=== PATIENT | male | born 1970 | race Caucasian/White ===

== ENCOUNTER 2019-05-18 17:29 | Emergency (ER) | payer BC, OTHER ==
[~2019-05-18] VITALS: Ht 183 cm; Wt 95.0 kg
--- OUTSIDE RECORDS SUMMARY | 2019-05-18 17:38 | XMS REPORT | Continuity of Care Document ---
Author Organization Unknown Address Unknown Phone Unavailable Allergies There is no data. Medications There is no data. Problems There is no data. Procedures There is no data. Results There is no data. Encounters ACCT No. Visit Date/Time Discharge Status Pt. Type Provider Facility Loc./Unit Complaint [id number] 10/18/2018 07:10:00 10/18/2018 23:59: 59 CLS Outpatient [facility]
[2019-05-18] MEDS ORDERED: ceFAZolin INJECTION 2,000 MG in WATER (STERILE) FOR INJECTION 10 ML IV STA (17:40)
[2019-05-18] MEDS ORDERED: NS IV 1000 ML 1,000 ML IV STA (17:40)
[2019-05-18] MEDS ORDERED: PARO20TA5 (17:44)
[2019-05-18] MEDS ORDERED: TETANUS,DIPTH,PERTUSS P/F (BOOSTRIX) 0.5 ML VIAL IM ONE (17:45)
--- NOTE | 2019-05-18 17:46 | ED Fall/Injury ---
General Stated Complaint: ARM INJ Source: patient, RN notes reviewed Exam Limitations: no limitations History of Present Illness Date Seen by Provider: May 18, 2019 Time Seen by Provider: 17:30 Initial Comments This patient is a 42 yo male presents to the emergency room Traumatic injury to the right forearm. Patient states he and the family was trying to move a gun safe in the home coming down the stairs. It fell over and basically partially degloved the forearm on the right. Significant damage the flexor radialis muscles and the ulnar side of the right forearm. Muscle exam. Patient does have somewhat diminished passenger attendant on the right mildly diminished capillary refill but appears to have good circulation otherwise. We'll do medical evaluation this patient we have discussed options patient will be transferred [facility] for trauma. We'll contact him shortly. Occurred: just prior to arrival Injuries/Pain Location: upper extremity Loss of Consciousness: no loss of consciousness Associated Symptoms (Fall): Denies Symptoms Allergies and Home Medications Allergies Coded Allergies: No Known Drug Allergies (Unverified , 05/18/19) Patient Home Medication List Home Medication List Reviewed: Yes Review of Systems Review of Systems Constitutional: No no symptoms reported; see HPI; No chills, No diaphoresis, No dizziness, No fever, No malaise, No weakness, No weight gain, No weight loss, No other Eyes: Denies No Symptoms Reported, Denies See HPI, Denies Blindness, Denies Blurred Vision, Denies Drainage, Denies Decreased Acuity, Denies Foreign Body Sensation, Denies Inflammation, Denies Pain, Denies Photophobia, Denies Previous Injury, Denies Shadows, Denies Tunnel Vision, Denies Vision Changes, Denies Contact Lenses, Denies Glasses, Denies Other Ears, Nose, Mouth, Throat: denies no symptoms reported, denies see HPI, denies ear pain, denies ear discharge, denies nose pain, denies nose discharge, denies epistaxis, denies mouth pain, denies mouth swelling, denies loose teeth, denies throat pain, denies throat swelling Respiratory: No no symptoms reported, No see HPI, No cough, No dyspnea on exertion, No hemoptysis, No orthopnea, No phlegm, No short of breath, No stridor, No wheezing, No other Cardiovascular: No no symptoms reported, No see HPI, No chest pain, No edema, No Hx of Intervention, No palpitations, No syncope, No vascular heart diseas, No other Gastrointestinal: No RUQ, No LUQ, No RLQ, No LLQ, No no symptoms reported, No see HPI, No abdominal pain, No constipation, No diarrhea, No dysphagia, No hematemesis, No heartburn, No jaundice, No loss of appetite, No melena, No nausea, No vomiting, No other Musculoskeletal: see HPI, muscle pain, muscle weakness Physical Exam Vital Signs Vital Signs - First Documented Capillary Refill : Height, Weight, BMI Height: '" Weight: lbs. oz. kg; BMI Method: General Appearance: WD/WN, no apparent distress HEENT: PERRL/EOMI, normal ENT inspection, TMs normal, pharynx normal Neck: non-tender, full range of motion, supple, normal inspection Cardiovascular: normal peripheral pulses, regular rate, rhythm, no edema, no gallop, no JVD, no murmur Respiratory: chest non-tender, lungs clear, normal breath sounds, no respiratory distress, no accessory muscle use Extremities: other (significant traumatic injury to the right forearm postoperatively around the Flexor mucle group on Ulnar side. Patient appears to have suffered some degloved meant in the area tendons do appear to be intact. That has diminished flexion of that muscle and weakness. We'll need further evaluation by orthopedics.) Progress/Results/Core Measures Results/Orders Lab Results Laboratory Tests Test 05/18/19 17:40 Range/Units White Blood Count 9.3 4.3-11.0 10^3/uL Red Blood Count 4.60 4.35-5.85 10^6/uL Hemoglobin 14.3 13.3-17.7 G/DL Hematocrit 42 40-54 % Mean Corpuscular Volume 91 80-99 FL Mean Corpuscular Hemoglobin 31 25-34 PG Mean Corpuscular Hemoglobin Concent 34 32-36 G/DL Red Cell Distribution Width 12.6 10.0-14.5 % Platelet Count 267 130-400 10^3/uL Mean Platelet Volume 11.2 H 7.4-10.4 FL Neutrophils (%) (Auto) 41 L 42-75 % Lymphocytes (%) (Auto) 42 12-44 % Monocytes (%) (Auto) 9 0-12 % Eosinophils (%) (Auto) 7 0-10 % Basophils (%) (Auto) 1 0-10 % Neutrophils # (Auto) 3.8 1.8-7.8 X 10^3 Lymphocytes # (Auto) 3.9 1.0-4.0 X 10^3 Monocytes # (Auto) 0.8 0.0-1.0 X 10^3 Eosinophils # (Auto) 0.7 H 0.0-0.3 10^3/uL Basophils # (Auto) 0.1 0.0-0.1 10^3/uL Sodium Level 143 135-145 MMOL/L Potassium Level 3.6 3.6-5.0 MMOL/L Chloride Level 106 98-107 MMOL/L Carbon Dioxide Level 23 21-32 MMOL/L Anion Gap 14 5-14 MMOL/L Blood Urea Nitrogen 19 H 7-18 MG/DL Creatinine 1.38 H 0.60-1.30 MG/DL Estimat Glomerular Filtration Rate 55 BUN/Creatinine Ratio 14 Glucose Level 122 H 70-105 MG/DL Calcium Level 9.1 8.5-10.1 MG/DL Corrected Calcium 8.5-10.1 MG/DL Total Bilirubin 0.5 0.1-1.0 MG/DL Aspartate Amino Transf (AST/SGOT) 25 5-34 U/L Alanine Aminotransferase (ALT/SGPT) 25 0-55 U/L Alkaline Phosphatase 56 40-136 U/L Total Protein 7.0 6.4-8.2 GM/DL Albumin 4.7 H 3.2-4.5 GM/DL My Orders Orders - ALANA MCKEON MD Comprehensive Metabolic Panel (05/18/19 17:37) Ed Iv/Invasive Line Start (05/18/19 17:37) Cbc With Automated Diff (05/18/19 17:37) Forearm 2 View Right (05/18/19 17:37) Dipht,Pertuss(Acell),Tet Adult (Boostrix (05/18/19 17:45) Ns Iv 1000 Ml (Sodium Chloride 0.9%) (05/18/19 17:40) Cefazolin Injection (Ancef Injection) (05/18/19 17:40) Ondansetron Injection (Zofran Injectio (05/18/19 18:01) Morphine Injection (Morphine Injection (05/18/19 18:05) Medications Given in ED Current Medications Medications Dose Ordered Sig/Jinny Route Start Time Stop Time Status Last Admin Dose Admin Diphtheria/ Tetanus/Acell Pertussis 0.5 ml ONCE ONCE IM 05/18/19 17:45 05/18/19 17:46 DC 05/18/19 17:57 0.5 ML Morphine Sulfate 10 mg STK-MED ONCE .ROUTE 05/18/19 18:05 05/18/19 18:12 DC 05/18/19 18:20 10 MG Ondansetron HCl 4 mg STK-MED ONCE .ROUTE 05/18/19 18:01 05/18/19 18:08 DC 05/18/19 18:12 4 MG Vital Signs/I&O 05/18/19 05/18/19 05/18/19 17:45 17:45 19:27 Temp 38.4 34.5 Pulse 68 68 76 Resp 14 18 14 B/P (MAP) 122/80 (94) 149/86 (107) 120/73 Pulse Ox 100 94 98 O2 Delivery Room Air Room Air Progress Progress Note : Time: 18:22 Progress Note I discussed at length with trauma surgery at [facility]. Patient be transferred to [facility] for surgical repair was Repliform patient excepting physician is Dr. Juarez Departure Impression Primary Impression: Traumatic injury Additional Impression: Laceration of right arm with complication Disposition: XFER SHT-TRM HOSP Condition: Stable Transfer Transfer Reason: Exceeds level of care Time Spoke to Accepting Phy: 18:27 Transfer Progress Notes I discussed at length with trauma surgery at [facility]. Patient be transferred to [facility] for surgical repair was Repliform patient excepting physician is Dr. Juarez Transfer Time: 18:27 Transfer Facility: [facility] Method of Transfer: EMS Departure-Patient Inst. Referrals: JULIANNA CHANEY DO (PCP/Family) Primary Care Physician ALANA MCKEON MD May 18, 2019 17:46
[2019-05-18 18:00] LABS: HEMATOCRIT 42 % (40-54); HEMOGLOBIN 14.3 G/DL (13.3-17.7); MEAN CORPUSCULAR HEMOGLOBIN 31 PG (25-34); MEAN CORPUSCULAR HGB CONC 34 G/DL (32-36); MEAN CORPUSCULAR VOLUME 91 FL (80-99); RED CELL DISTRIBUTION WIDTH 12.6 % (10.0-14.5); WHITE BLOOD COUNT 9.3 10^3/uL (4.3-11.0)
[2019-05-18 18:01] LABS: BASOPHILS # (AUTO) 0.1 10^3/uL (0.0-0.1); BASOPHILS % (AUTO) 1 % (0-10); EOSINOPHILS # (AUTO) 0.7 10^3/uL (0.0-0.3); EOSINOPHILS % (AUTO) 7 % (0-10); LYMPHOCYTES # (AUTO) 3.9 X 10^3 (1.0-4.0); LYMPHOCYTES % (AUTO) 42 % (12-44); MEAN PLATELET VOLUME 11.2 FL (7.4-10.4); MONOCYTES # (AUTO) 0.8 X 10^3 (0.0-1.0); MONOCYTES % (AUTO) 9 % (0-12); NEUTROPHILS # (AUTO) 3.8 X 10^3 (1.8-7.8); NEUTROPHILS % (AUTO) 41 % (42-75); PLATELET COUNT 267 10^3/uL (130-400)
[2019-05-18] MEDS ORDERED: ONDANSETRON 4 MG/2 ML (SDV) Z0FRAN ONE (18:01)
[2019-05-18] MEDS ORDERED: morphine INJ 10 MG/ML 1ML (SYR OR VIAL) ONE (18:05)
--- NOTE | 2019-05-18 18:21 | Diagnostic Imaging Report ---
INDICATION: Trauma. EXAMINATION: Two views of the right forearm. FINDINGS: There is laceration of the soft tissues along the mid forearm on the left along the ulnar side. Ulna and radius appear intact. Elbow and wrist show good alignment. No joint effusion. IMPRESSION: 1. No bony abnormality. 2. Large open laceration of the right forearm soft tissues. Dictated by: Dictated on workstation # [id number]
[2019-05-18 18:22] LABS: CHLORIDE 106 MMOL/L (98-107); POTASSIUM 3.6 MMOL/L (3.6-5.0); SODIUM 143 MMOL/L (135-145)
[2019-05-18 18:23] LABS: ALANINE AMINOTRANSFERASE 25 U/L (0-55); ALBUMIN 4.7 GM/DL (3.2-4.5); ALKALINE PHOSPHATASE 56 U/L (40-136); BILIRUBIN,TOTAL 0.5 MG/DL (0.1-1.0); BUN/CREATININE RATIO 14; CALCIUM 9.1 MG/DL (8.5-10.1); CARBON DIOXIDE 23 MMOL/L (21-32); CREATININE SERUM 1.38 MG/DL (0.60-1.30); GFR ESTIMATED 55; GLUCOSE 122 MG/DL (70-105)
--- NOTE | 2019-05-18 19:16 | NUR ---
Patient is resting comfortably at this time. Awaiting transport by [facility].
[2019-05-18 19:27] VITALS: BP 120/73
--- NOTE | 2019-05-18 19:29 | NUR ---
[facility] at bedside.
== END 2019-05-18 19:30 | disposition short-term general hospital (02) ==
LOC: ER FS 17:31
DX: S51.811A Laceration without foreign body of right forearm, initial encounter (principal); Z23 Encounter for immunization; W26.8XXA Contact with other sharp object(s), not elsewhere classified, initial encounter; Y92.009 Unspecified place in unspecified non-institutional (private) residence as the place of occurrence of the external cause
CPT/HCPCS: 36415; 73090; 80053; 85025; 90715

== ENCOUNTER 2020-12-29 23:38 | Observation (INO) | payer BC ==
[~2020-12-29] VITALS: Ht 182.8 cm; Wt 97.0 kg
[~2020-12-29 23:38] MED LIST: PARO20TA5
[2020-12-30] MEDS ORDERED: LORazepam INJ 2 MG/ML (ATIVAN) VIAL IVP STA (00:02)
[2020-12-30] MEDS ORDERED: NS IV 1000 ML 1,000 ML IV STA ×2 (00:02→02:26)
[2020-12-30] MEDS ORDERED: ONDANSETRON 4 MG/2 ML (SDV) Z0FRAN IVP STA (00:02)
--- NOTE | 2020-12-30 00:06 | ED General ---
General Chief Complaint: Neurological Problems Stated Complaint: DIZZINESS/VOMITING Source of Information: Patient, Spouse History of Present Illness Date Seen by Provider: Dec 29, 2020 Time Seen by Provider: 23:41 Initial Comments 50-year-old male presenting for off by private vehicle with complaints of sudden onset of dizziness with nausea and vomiting. He states that he was trying to sleep and was suddenly startled awake with a sensation of dizziness, the dizziness was severe enough that was causing him to have nausea and vomiting. He denies having a headache or any chest pain. He has increased dizziness with nausea vomiting when he moves his head especially. He has not had symptoms similar to this previously. He has not been feeling bad prior to going to bed. He denies eating or drinking anything different than normal. He denies any change in his vision. Does feel off balance and was having difficulty walking to the car and to get into the emergency department. Along with the dizziness and vomiting he is having diaphoresis. Timing/Duration: 1/2 Hour Modifying Factors: worse with Movement (Turning his head especially to the left makes it worse) Associated Systoms: No Chest Pain, No Cough; Diaphoresis; No Fever/Chills, No Headaches, No Loss of Appetite, No Malaise; Nausea/Vomiting; No Rash, No Seizure, No Shortness of Air, No Syncope, No Weakness Allergies and Home Medications Allergies Coded Allergies: No Known Drug Allergies (Unverified , 05/18/19) Patient Home Medication List Home Medication List Reviewed: Yes Paroxetine HCl (Paroxetine HCl) 20 Mg Tablet, (Reported) Entered as Reported by: DEYANIRA PAGAN on 05/18/19 [id number] Review of Systems Review of Systems Constitutional: diaphoresis, dizziness; No fever EENTM: No ear pain, No blurred vision, No double vision, No epistaxis, No nose congestion Respiratory: No cough, No short of breath Cardiovascular: No chest pain Gastrointestinal: nausea, vomiting Genitourinary: No dysuria Musculoskeletal: no symptoms reported Skin: no symptoms reported Psychiatric/Neurological: Anxiety (takes paxil, but has not taken it for a few days); Denies Headache Hematologic/Lymphatic: Denies Blood Clots Past [id number] Hx Patient Social History Tobacco Use?: No Substance use?: No Alcohol Use?: Yes Alcohol Frequency: Once in a while Past Medical History Surgeries: Yes (CERVICAL SPINE FUSION) Orthopedic Respiratory: No Cardiac: No Neurological: No Genitourinary: No Gastrointestinal: No Musculoskeletal: No Endocrine: No HEENT: No Cancer: No Psychosocial: Yes Depression Integumentary: No Blood Disorders: No Physical Exam Vital Signs Vital Signs - First Documented 12/29/20 23:51 Temp 36.5 Pulse 79 Resp 16 B/P (MAP) 146/91 (109) Pulse Ox 99 O2 Delivery Room Air Capillary Refill : Height, Weight, BMI Height: '" Weight: lbs. oz. kg; 28.00 BMI Method: General Appearance: Anxious, Moderate Distress Eyes: Bilateral Eye PERRL, Bilateral Eye EOMI HEENT: TMs Normal, Pharynx Normal; No Photophobia; Other (increased dizziness with looking to left, nystagmus with looking to left) Neck: Full Range of Motion, Non Tender, Supple Respiratory: Chest Non Tender, Lungs Clear, Normal Breath Sounds, No Accessory Muscle Use, No Respiratory Distress Cardiovascular: Regular Rate, Rhythm, No Murmur, Normal Peripheral Pulses Gastrointestinal: Normal Bowel Sounds, No Pulsatile Mass, Non Tender, Soft Rectal: Deferred Extremity: Normal Capillary Refill, Normal Inspection, No Pedal Edema Neurologic/Psychiatric: Alert, Oriented x3, No Motor/Sensory Deficits, licensed nursing assistant II- XII Norm as Tested, Other (anxious) Skin: Diaphoresis; No Rash Progress/Results/Core Measures Suspected Sepsis SIRS Temperature: Pulse: Respiratory Rate: Laboratory Tests 12/30/20 00:00: White Blood Count 11.6H Blood Pressure / Mean: Laboratory Tests 12/30/20 00:00: Creatinine 1.21, Platelet Count 298, Total Bilirubin 0.4 Results/Orders Lab Results Laboratory Tests Test 12/30/20 00:00 Range/Units White Blood Count 11.6 H 4.3-11.0 10^3/uL Red Blood Count 4.42 4.30-5.52 10^6/uL Hemoglobin 13.3 13.3-17.7 g/dL Hematocrit 39 L 40-54 % Mean Corpuscular Volume 88 80-99 fL Mean Corpuscular Hemoglobin 30 25-34 pg Mean Corpuscular Hemoglobin Concent 34 32-36 g/dL Red Cell Distribution Width 13.1 10.0-14.5 % Platelet Count 298 130-400 10^3/uL Mean Platelet Volume 11.3 9.0-12.2 fL Immature Granulocyte % (Auto) 0 % Neutrophils (%) (Auto) 35 L 42-75 % Lymphocytes (%) (Auto) 44 12-44 % Monocytes (%) (Auto) 14 H 0-12 % Eosinophils (%) (Auto) 6 0-10 % Basophils (%) (Auto) 1 0-10 % Neutrophils # (Auto) 4.1 1.8-7.8 X 10^3 Lymphocytes # (Auto) 5.1 H 1.0-4.0 X 10^3 Monocytes # (Auto) 1.6 H 0.0-1.0 X 10^3 Eosinophils # (Auto) 0.7 H 0.0-0.3 10^3/uL Basophils # (Auto) 0.2 H 0.0-0.1 10^3/uL Immature Granulocyte # (Auto) 0.0 0.0-0.1 10^3/uL Sodium Level 140 135-145 MMOL/L Potassium Level 3.4 L 3.6-5.0 MMOL/L Chloride Level 105 98-107 MMOL/L Carbon Dioxide Level 22 21-32 MMOL/L Anion Gap 13 5-14 MMOL/L Blood Urea Nitrogen 20 H 7-18 MG/DL Creatinine 1.21 0.60-1.30 MG/DL Estimat Glomerular Filtration Rate 64 BUN/Creatinine Ratio 17 Glucose Level 126 H 70-105 MG/DL Calcium Level 9.2 8.5-10.1 MG/DL Corrected Calcium 8.8 8.5-10.1 MG/DL Total Bilirubin 0.4 0.1-1.0 MG/DL Aspartate Amino Transf (AST/SGOT) 25 5-34 U/L Alanine Aminotransferase (ALT/SGPT) 16 0-55 U/L Alkaline Phosphatase 62 40-136 U/L Total Protein 7.1 6.4-8.2 GM/DL Albumin 4.5 3.2-4.5 GM/DL Lipase 32 8-78 U/L My Orders Orders - MARK CORREA MD Comprehensive Metabolic Panel (12/30/20 00:02) Lipase (12/30/20 00:02) Ua Culture If Indicated (12/30/20 00:02) Ed Iv/Invasive Line Start (12/30/20 00:02) Cbc With Automated Diff (12/30/20 00:02) Ns Iv 1000 Ml (Sodium Chloride 0.9%) (12/30/20 00:02) Ondansetron Injection (Zofran Injectio (12/30/20 00:02) Lorazepam Injection (Ativan Injection) (12/30/20 00:02) Monitor-Rhythm Ecg Trace Only (12/30/20 00:03) Ct Head Wo (12/30/20 00:03) Ekg Tracing (12/30/20 00:03) Ns Iv 1000 Ml (Sodium Chloride 0.9%) (12/30/20 02:26) Metoclopramide Injection (Reglan Injecti (12/30/20 02:26) Vital Signs/I&O 12/29/20 23:51 Temp 36.5 Pulse 79 Resp 16 B/P (MAP) 146/91 (109) Pulse Ox 99 O2 Delivery Room Air Capillary Refill : Progress Note #1: Progress Note obtain labs, ECG, CT head. With his dizziness and n/v getting worse when he looks to the left and moving head or eyes some of this can certainly fit with positional vertigo. Will try IVF for hydration, Zofran for nausea, Lorazepam 1 mg IV for vertigo since he is unable to tolerate po for meclizine dose. Also the Lorazepam should help with his nausea and anxiety. He could be having withdrawal effect from paxil, positional vertigo, basilar stroke, electrolyte imbalance, myocardial infarction, sinusitis. Progress Note #2: Time: 00:43 Progress Note Labs show mild elevation of WBC to 11.6 that is likely related to stress reaction from acute n/v. His chemistry shows Cr of 1.21 and elevated glucose to 126, but no acute significant electrolyte imbalance. Normal lipase and liver enzymes. On my review of his ECG he has no acute ST elevation or ischemia, and his CT scan of the head shows no acute process. He is doing better after medicines in the ED and resting more comfortably. Progress Note #3: Time: 02:30 Progress Note When trying to set the patient up in the bed he had recurrent n/v and dizziness, especially when looking to the left. He was doing better when he was resting supine and was not moving his head. Will check with hospitalist about admit for observation stay. 0245 Dr. Barakat accepted pt for observation admit. Will continue with iv fluids and anti-emetics. ECG Initial ECG Impression Date: Dec 30, 2020 Initial ECG Impression Time: 00:24 Initial ECG Rate: 59 Initial ECG Rhythm: Normal Sinus Initial ECG Comparisson: No Previous ECG Available Comment Sinus rhythm with a heart rate 59 bpm. Incomplete right bundle branch block. [place] interval [address] elevation. QT interval 425 ms with a QTc interval 421 ms. No prior tracing available for comparison. Diagnostic Imaging Diagonstic Imaging: CT Plain Films/CT/US/NM/MRI: head Comments No acute intracranial abnormality. Read by radiologist Carli Pretty MD at 0028 and faxed at [phone] Reviewed: Reviewed [place] Study, Reviewed by Me Departure Communication (Admissions) Time/Spoke to Admitting Phy: 02:[address] Barakat for the hospitalist service as the patient sees Dr. Wilson. He accepted for an observation stay to continue antiemetics and IV fluids. Impression Primary Impression: BPPV (benign paroxysmal positional vertigo) Qualified Codes: H81.12 - Benign paroxysmal vertigo, left ear Additional Impression: Intractable nausea and vomiting Disposition: 30 STILL A PATIENT Condition: Stable Admissions Decision to Admit Reason: Admit from ER (General) Decision to Admit/Date: Dec 30, 2020 Time/Decision to Admit Time: 02:45 Departure-Patient Inst. Referrals: JULIANNA WILSON DO (PCP/Family) Primary Care Physician MARK CORREA MD Dec 30, 2020 00:06
[2020-12-30 00:15] LABS: HEMATOCRIT 39 % (40-54); HEMOGLOBIN 13.3 g/dL (13.3-17.7); LYMPHOCYTES % (AUTO) 44 % (12-44); MEAN CORPUSCULAR HEMOGLOBIN 30 pg (25-34); MEAN CORPUSCULAR HGB CONC 34 g/dL (32-36); MEAN CORPUSCULAR VOLUME 88 fL (80-99); MEAN PLATELET VOLUME 11.3 fL (9.0-12.2); MONOCYTES % (AUTO) 14 % (0-12); NEUTROPHILS % (AUTO) 35 % (42-75); PLATELET COUNT 298 10^3/uL (130-400); WHITE BLOOD COUNT 11.6 10^3/uL (4.3-11.0)
[2020-12-30 00:16] LABS: BASOPHILS # (AUTO) 0.2 10^3/uL (0.0-0.1); BASOPHILS % (AUTO) 1 % (0-10); EOSINOPHILS # (AUTO) 0.7 10^3/uL (0.0-0.3); EOSINOPHILS % (AUTO) 6 % (0-10); LYMPHOCYTES # (AUTO) 5.1 X 10^3 (1.0-4.0); MONOCYTES # (AUTO) 1.6 X 10^3 (0.0-1.0); NEUTROPHILS # (AUTO) 4.1 X 10^3 (1.8-7.8)
[2020-12-30 00:31] LABS: ALBUMIN 4.5 GM/DL (3.2-4.5); BILIRUBIN,TOTAL 0.4 MG/DL (0.1-1.0); CALCIUM 9.2 MG/DL (8.5-10.1); CREATININE SERUM 1.21 MG/DL (0.60-1.30); POTASSIUM 3.4 MMOL/L (3.6-5.0); TOTAL PROTEIN 7.1 GM/DL (6.4-8.2)
[2020-12-30] MEDS ORDERED: METOCLOPRAMIDE INJ 10 MG/2 ML (REGLAN) IVP STA (02:26)
[2020-12-30 05:28] LABS: BASOPHILS # (AUTO) 0.1 10^3/uL (0.0-0.1); BASOPHILS % (AUTO) 1 % (0-10); EOSINOPHILS # (AUTO) 0.1 10^3/uL (0.0-0.3); EOSINOPHILS % (AUTO) 1 % (0-10); HEMATOCRIT 38 % (40-54); HEMOGLOBIN 12.8 g/dL (13.3-17.7); LYMPHOCYTES # (AUTO) 0.9 10^3/uL (1.0-4.0); LYMPHOCYTES % (AUTO) 12 % (12-44); MEAN CORPUSCULAR HEMOGLOBIN 30 pg (25-34); MEAN CORPUSCULAR HGB CONC 33 g/dL (32-36); MEAN CORPUSCULAR VOLUME 90 fL (80-99); MEAN PLATELET VOLUME 11.7 fL (9.0-12.2); MONOCYTES # (AUTO) 0.3 10^3/uL (0.0-1.0); MONOCYTES % (AUTO) 5 % (0-12); NEUTROPHILS # (AUTO) 6.1 10^3/uL (1.8-7.8); NEUTROPHILS % (AUTO) 82 % (42-75); PLATELET COUNT 214 10^3/uL (130-400); WHITE BLOOD COUNT 7.4 10^3/uL (4.3-11.0)
--- NOTE | 2020-12-30 05:39 | Diagnostic Imaging Report ---
PROCEDURE: CT head without contrast. TECHNIQUE: Multiple contiguous axial images were obtained through the brain without the use of intravenous contrast. Auto Exposure Controls were utilized during the CT exam to meet ALARA standards for radiation dose reduction. INDICATION: Dizziness, nausea vomiting The ventricles are normal in size, shape and position. There are no masses or hemorrhages. There are no extra-axial fluid collections. IMPRESSION: Negative CT head I agree with preliminary interpretation. Dictated by: Dictated on workstation # [id number]
[2020-12-30 05:52] LABS: POTASSIUM 4.3 MMOL/L (3.6-5.0)
[2020-12-30 05:53] LABS: CALCIUM 8.4 MG/DL (8.5-10.1)
[2020-12-30 05:57] LABS: CREATININE SERUM 1.02 MG/DL (0.60-1.30)
[2020-12-30] MEDS ORDERED: ONDANSETRON 4 MG/2 ML (SDV) Z0FRAN IVP PRN (07:00)
[2020-12-30] MEDS ORDERED: METOCLOPRAMIDE INJ 10 MG/2 ML (REGLAN) IVP PRN (07:00)
[2020-12-30] MEDS ORDERED: NS IV 1000 ML 1,000 ML IV SCH (07:00)
[2020-12-30 08:00] VITALS: BP 118/83
[2020-12-30] MEDS ORDERED: MECL-149 PO (10:08)
[2020-12-30] MEDS ORDERED: ONDA4TAB11 PO (10:08)
--- NOTE | 2020-12-30 10:55 | Discharge Summary ---
Discharge Summary Hospital Course Was the Problem List Reviewed?: Yes Problems/Dx: (1) BPPV (benign paroxysmal positional vertigo) Status: Acute Qualifiers: Qualified Codes: H81.12 - Benign paroxysmal vertigo, left ear Hospital Course Date of Admission: Dec 30, 2020 at 04:23 Admission Diagnosis : BPPV Family Physician/Provider: Shad Wilson DO Date of Discharge: 12/30/20 Discharge Diagnosis: BPPV Hospital Course: Tee Perez is a 50 year old male with PMH panic attacks who presented with vertigo. He awoke from sleep and was panicked and got out of bed to the floor. He was then very dizzy and the room was spinning. He denied ever having this feeling before. He had continued dizziness on the way to the ER and vomited. His CT was negative for acute intracranial abnormalities. He had no further issues with vertigo or vomiting during his stay. He was given a prescription for PT to undergo vestibular rehab. He was also given Meclizine and Zofran as needed. He should follow up with his PCP in a week or two. He was discharged home in stable condition. Labs and Pending Lab Test: Laboratory Tests 12/30/20 00:00: White Blood Count 11.6H, Red Blood Count 4.42, Hemoglobin 13.3, Hematocrit 39L, Mean Corpuscular Volume 88, Mean Corpuscular Hemoglobin 30, Mean Corpuscular Hemoglobin Concent 34, Red Cell Distribution Width 13.1, Platelet Count 298, Mean Platelet Volume 11.3, Immature Granulocyte % (Auto) 0, Neutrophils (%) (Auto) 35L, Lymphocytes (%) (Auto) 44, Monocytes (%) (Auto) 14H, Eosinophils (%) (Auto) 6, Basophils (%) (Auto) 1, Neutrophils # (Auto) 4.1, Lymphocytes # (Auto) 5.1H, Monocytes # (Auto) 1.6H, Eosinophils # (Auto) 0.7H, Basophils # (Auto) 0.2H, Immature Granulocyte # (Auto) 0.0, Sodium Level 140, Potassium Level 3.4L, Chloride Level 105, Carbon Dioxide Level 22, Anion Gap 13, Blood Urea Nitrogen 20H, Creatinine 1.21, Estimat Glomerular Filtration Rate 64, BUN/Creatinine Ratio 17, Glucose Level 126H, Calcium Level 9.2, Corrected Calcium 8.8, Total Bilirubin 0.4, Aspartate Amino Transf (AST/SGOT) 25, Alanine Aminotransferase (ALT/SGPT) 16, Alkaline Phosphatase 62, Total Protein 7.1, Albumin 4.5, Lipase 32 12/30/20 05:05: White Blood Count 7.4, Red Blood Count 4.25L, Hemoglobin 12.8L, Hematocrit 38L, Mean Corpuscular Volume 90, Mean Corpuscular Hemoglobin 30, Mean Corpuscular Hemoglobin Concent 33, Red Cell Distribution Width 12.9, Platelet Count 214, Mean Platelet Volume 11.7, Immature Granulocyte % (Auto) 0, Neutrophils (%) (Auto) 82H, Lymphocytes (%) (Auto) 12, Monocytes (%) (Auto) 5, Eosinophils (%) (Auto) 1, Basophils (%) (Auto) 1, Neutrophils # (Auto) 6.1, Lymphocytes # (Auto) 0.9L, Monocytes # (Auto) 0.3, Eosinophils # (Auto) 0.1, Basophils # (Auto) 0.1, Immature Granulocyte # (Auto) 0.0, Sodium Level 139, Potassium Level 4.3, Chloride Level 108H, Carbon Dioxide Level 19L, Anion Gap 12, Blood Urea Nitrogen 19H, Creatinine 1.02, Estimat Glomerular Filtration Rate 78, BUN/Creatinine Ratio 19, Glucose Level 122H, Calcium Level 8.4L Home Meds Active Ondansetron Odt (Ondansetron) 4 Mg Tab.rapdis 4 Mg PO Q6H PRN 7 Days Meclizine HCl 25 Mg Tablet 25 Mg PO TID PRN 30 Days Reported Paroxetine HCl 20 Mg Tablet Assessment/Pt Instructions Take medications as prescribed. Follow up with your PCP. Vestibular rehab ordered. Return with worsening dizziness, vomiting, or if you feel like you are getting worse. Discharge Planning: <30 minutes discharge planning Discharge Instructions Discharge Diet: No Restrictions Activity as Tolerated: Yes Discharge Physical Examination Vital Signs Vital Signs Date Time Temp Pulse Resp B/P (MAP) Pulse Ox O2 Delivery O2 Flow Rate FiO2 12/30/20 08:06 97 Room Air 12/30/20 08:00 36.1 64 14 118/83 (95) General Appearance: No Apparent Distress, WD/WN HEENT: PERRL/EOMI, Pharynx Normal Respiratory: Lungs Clear, Normal Breath Sounds, No Respiratory Distress Cardiovascular: Regular Rate, Rhythm, No Edema, No Murmur Gastrointestinal: Normal Bowel Sounds, Non Tender, Soft Extremity: Normal Inspection, Non Tender, No Pedal Edema Skin: Normal Color, Warm/Dry Neurologic/Psychiatric: Alert, Oriented x3, No Motor/Sensory Deficits, Normal Mood/Affect Allergies: Coded Allergies: No Known Drug Allergies (Unverified , 05/18/19) Copy Copies To 1: SHAD WILSON DO Discharge Summary Date of Admission Dec 30, 2020 at 04:23 Date of Discharge Discharge Date: Dec 30, 2020 Discharge Time: 10:54 Admission Diagnosis BPPV Discharge Diagnosis (1) BPPV (benign paroxysmal positional vertigo) Status: Acute Qualifiers: Qualified Codes: H81.12 - Benign paroxysmal vertigo, left ear KHALIF VAN MD Dec 30, 2020 10:55
--- NOTE | 2020-12-30 11:21 | Physical Therapy Daily Note ---
GOLDIEFAITH GARCES PT 12/30/20 1121: PT Daily Note-Current Subjective Nausea and vomiting with sit to stand. No issues while supine. Mental Status Patient Orientation: Person, Place, Time, Situation Attachments: IV Transfers SCALE: Activities may be completed with or without assistive devices. 7-Rmzrjqlhjd-dnjzwht completes the activity by him/herself with no assistance from a helper. 5-Set-up or Clean-up Assistance-helper sets up or cleans up; patient completes activity. [place] assists only prior to or following the activity. 4-Supervision or Touching Assistance-helper provides verbal cues and/or touching/steadying and/or contact guard assistance as patient completes activity. Assistance may be provided throughout the activity or intermittently. 3-Partial/Moderate Assistance-helper does LESS THAN HALF the effort. [place] lifts, holds or supports trunk or limbs, but provides less than half the effort. 2-Substantial/Maximal Assistance-helper does MORE THAN HALF the effort. [place] lifts or holds trunk or limbs and provides more than half the effort. 0-Zxzenktwv-yixkgj does ALL the effort. Patient does none of the effort to complete the activity. Or, the assistance of 2 or more helpers is required for the patient to complete the activity. If activity was not attempted, code reason: 7-Patient Refused. 9-Not Applicable-not attempted and the patient did not perform the activity before the current illness, exacerbation or injury. 10-Not Attempted due to Environmental Limitations-(lack of equipment, weather restraints, etc.). 88-Not Attempted due to Medical Conditions or Safety Concerns. Roll Left & Right (QC): 6 Sit to Lying (QC): 6 Lying to Sitting/Side of Bed(Q: 6 Sit to Stand (QC): 6 Gait Training Does the Patient Walk?: Yes Gait Assistive Device: None Wheelchair Training Does the Pt Use a Wheelchair?: No Neuromuscular Normal Hallpike-Trenton testing. Normal head impulse testing. Sit to stand (regardless of head positioning) elicits nausea, vomitting, and elevation of blood pressure. Pt was able to remain standing after performing sit to stand (I), and was able to remain seated (I) after testing. He is able to lie down and the symptoms cease. No nystagmus or outward signs of dizziness observed throughout testing. Assessment Current Status: Fair Progress Pt is not positive for BPPV. Symptoms elicited with othostatic hypotension testing, but blood pressure elevated following sit to stand. Pt may benefit from further testing including sleep study due to the report of vertigo and waking up gasping at night. PT Plan Treatment/Plan Treatment Plan: Continue Plan of Care JOLENE MARIE PT 12/30/20 1521: FAITH TRENT PT Dec 30, 2020 11:21 JOLENE MARIE PT Dec 30, 2020 15:21
[2020-12-30 11:30] VITALS: BP 116/83
--- NOTE | 2020-12-30 11:32 | Physical Therapy Evaluation ---
PT Evaluation-General Medical Diagnosis Admission Date Dec 30, 2020 at 04:23 Medical Diagnosis: Dizziness, vomitting Onset Date: Dec 30, 2020 Therapy Diagnosis Therapy Diagnosis: Vertigo Precautions Precautions/Isolations: Standard Precautions Referral Physician: Lore Matamoros Reason for Referral: Evaluation/Treatment Medical History Current History Woke up gasping for air and fell to the floor due to dizziness and confusion. Was taken to ED in [place] and sent to [facility] for further evaluation. Reviewed History: Yes Prior Prior Level of Function SCALE: Activities may be completed with or without assistive devices. 3-Znviqfpict-wdncjvt completes the activity by him/herself with no assistance from a helper. 5-Set-up or Clean-up Assistance-helper sets up or cleans up; patient completes activity. [place] assists only prior to or following the activity. 4-Supervision or Touching Assistance-helper provides verbal cues and/or touching/steadying and/or contact guard assistance as patient completes activity. Assistance may be provided throughout the activity or intermittently. 3-Partial/Moderate Assistance-helper does LESS THAN HALF the effort. [place] lifts, holds or supports trunk or limbs, but provides less than half the effort. 2-Substantial/Maximal Assistance-helper does MORE THAN HALF the effort. [place] lifts or holds trunk or limbs and provides more than half the effort. 3-Akedtxusb-lojbkq does ALL the effort. Patient does none of the effort to c omplete the activity. Or, the assistance of 2 or more helpers is required for the patient to complete the activity. If activity was not attempted, code reason: 7-Patient Refused. 9-Not Applicable-not attempted and the patient did not perform the activity before the current illness, exacerbation or injury. 10-Not Attempted due to Environmental Limitations-(lack of equipment, weather restraints, etc.). 88-Not Attempted due to Medical Conditions or Safety Concerns. Bed Mobility: 6 Transfers (B,C,W/C): 6 Gait: 6 Stairs: 6 Indoor Mobility (Ambulation): Independent Stairs: Independent Prior Devices Use: None PT Evaluation-Current Subjective Nausea and vomitting with sit to stand. Able to remain asymptomatic while supine. Pt/Family Goals return home Objective Patient Orientation: Person, Place, Time, Situation Attachments: IV ROM/Strength ROM Upper Extremities WFL ROM Lower Extremities WFL Strength Upper Extremities 5/5 Strength Lower Extremities 5/5 Neuromuscular (Tone, Coordination, Reflexes) Sensation and reflexes are intact. Sensory Vision: Functional Hearing: Functional Sensation Right Upper Extremit: Intact Sensation Left Upper Extremity: Intact Sensation Right Lower Extremit: Intact Sensation Left Lower Extremity: Intact Transfers Roll Left to Right (QC): 6 Sit to Lying (QC): 6 Lying to Sitting/Side of Bed(Q: 6 Sit to Stand (QC): 6 Chair/Lvi-ut-Nyyfp Xfer(QC): 6 Gait Does the Patient Walk?: Yes Mode of Locomotion: Walk Anticipated Mode of Locomotion: Walk Gait Assistive Device: None Wheelchair Training Does the Pt Use a Wheelchair?: No Balance Special Test Comments Performed the Hallpike-Trenton test with normal response, no nystagmus or vertigo elicited. Normal head impulse test. Performed orthostatic hypotension testing and elicited nausea with sit to stand, no change in symptoms with head positioning. Pt became nauseated and was able to remain standing (I). He was then able to sit (I) with continued nausea and vomitting. His blood pressure was elevated relative to his prior levels (forced testing after standing and sitting ~1100). Assessment/Needs No nystagmus observed during BPPV testing. Pt was only symptomatic with orthostatic hypotension testing. Pt had noted initially that he awoke gasping for air, was disoriented, and struggled to stand. He may benefit from further assessment which may include sleep study due to no prior hx of vertigo or any previous injury. Rehab Potential: Fair PT Short Term Goals Short Term Goals Time Frame: Dec 30, 2020 Roll Left & Right: 6 Sit to lyin Lying to sitting on side of be: 6 Sit to stand: 6 Chair/tej-sr-zdzok transfer: 6 PT Plan Problem List Problem List: Balance Nausea and vomiting following sit to stand, with elevated blood pressure observed after standing. Treatment/Plan Treatment Plan: Discontinue PT, goals met Treatment Duration: Dec 30, 2020 Frequency: 1 time per week Estimated Hrs Per Day: .5 hour per day Patient and/or Family Agrees t: Yes Discharge Recommendations Plan Discharge to home with family. Pt to benefit from further testing to discover the origin of his current issue. Time/GCodes Time In: 1035 Time Out: 1110 Total Billed Treatment Time: 35 Total Billed Treatment 1, FAITH Estrada PT Dec 30, 2020 11:32
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
== END 2020-12-30 12:40 | disposition home or self-care (01) ==
LOC: EDUNIT# 23:38 → ER FS 23:41 → UNDOADMOB 12-30 04:00 → CSD 12-30 04:00
PROVIDERS: ADMIT Internal Medicine; ATTEND Internal Medicine
DX: H81.12 Benign paroxysmal vertigo, left ear (principal); F32.A Depression, unspecified; Z79.899 Other long term (current) drug therapy
CPT/HCPCS: 36415; 70450; 80048; 80053; 83690; 85025; 93005; 93041; 97161; 99284; G0378